=== PATIENT | female | born 1980 | race Caucasian/White ===

== ENCOUNTER 2021-07-03 17:01 | Emergency (ER) | payer OTHER ==
[~2021-07-03 17:01] MED LIST: BACITRACIN15 GM TOP; CYCLOBENZAPRINE10 MG PO; HYDROCODON-ACE1 EAC4 PO; MEDROL 4MG DOSEP4 MG PO; MOTRIN600 MG PO; VIBRAMYCIN100 MG PO
[2021-07-03] MEDS ORDERED: MEDROL 4MG DOSEP4 MG PO (19:42)
== END 2021-07-03 19:52 | disposition home or self-care (01) ==
LOC: FER 17:01
DX: M19.011 Primary osteoarthritis, right shoulder (principal); I10 Essential (primary) hypertension
CPT/HCPCS: 73030; J1100

== ENCOUNTER 2021-10-23 17:07 | Emergency (ER) | payer OTHER ==
[2021-10-23 18:22] LABS: INFLUENZA A NAA NEGATIVE (NEGATIVE)
[2021-10-23 18:40] LABS: CORONAVIRUS 2019 SARS-COV-2 POSITIVE (NEGATIVE)
[2021-10-23 19:46] LABS: BASOPHIL 0.4 % (0-2); EOSINOPHIL 0.4 % (0-5); HCT 47.2 % (37.0-47.0); HGB 15.7 g/dl (12.5-16.0); MCH 29.4 pg (25.0-31.0); MCHC 33.3 g/dL (32.0-36.0); MCV 88.4 fL (78.0-100.0); MONOCYTE 5.7 % (0-12); MPV 9.5 fL (6.0-9.5); NRBC 0; PLT 272 K/uL (150-400); RBC 5.34 M/uL (4.20-5.40); RDW 13.2 % (11.5-14.0); WBC 18.8 K/uL (4.0-10.5)
[2021-10-23 20:04] LABS: ALBUMIN 4.2 g/dL (3.4-5.0); BILIRUBIN - TOTAL 0.5 mg/dL (0.2-1.0); BUN/CREAT RATIO (CALC) 22.7 RATIO; CREATININE 0.75 mg/dL (0.51-0.95); GLOBULIN (CALCULATION) 4.4 g/dL; POTASSIUM 3.4 mmol/L (3.5-5.1); TOTAL PROTEIN 8.6 g/dL (6.4-8.2)
[2021-10-23 21:02] LABS: LACTIC ACID 2.9 mmol/L (0.4-1.9)
[2021-10-23 21:05] LABS: BILIRUBIN NEGATIVE (NEGATIVE); BLOOD NEGATIVE Ery/uL (NEGATIVE); CLARITY CLEAR (CLEAR); COLOR YELLOW (YELLOW); GLUCOSE (U) NORMAL (NORMAL); LEUKOCYTES NEGATIVE Leu/uL (NEGATIVE); NITRITE NEGATIVE (NEGATIVE); PROTEIN TRACE (LOW) mg/dL (NEGATIVE); SPECIFIC GRAVITY 1.025 (1.001-1.030); UROBILINOGEN 0.2 mg/dL (0.2-1.0)
[2021-10-23] MEDS ORDERED: ONDANSETRON HCL4 MG PO (22:04)
== END 2021-10-23 22:52 | disposition home or self-care (01) ==
LOC: FER 17:07
PROVIDERS: Emergency Medicine; Nurse Practitioner Family
DX: U07.1 COVID-19 (principal); R10.9 Unspecified abdominal pain; Z28.310 Unvaccinated for COVID-19
CPT/HCPCS: 36415; 80053; 81003; 83605; 85025; 87040; J2405; J2550; J7030; U0002